=== PATIENT | female | born 1980 | race Caucasian/White ===

== ENCOUNTER 2023-02-06 23:55 | Emergency (ER) | payer MEDICAID, OTHER ==
[~2023-02-06] VITALS: Ht 175.3 cm; Wt 71.2 kg
[2023-02-07 00:20] VITALS: O2SAT 98
[2023-02-07] MEDS ORDERED: TETANUS, DIPHTHERIA, PERTUSSIS VAC/PF 0.5ML (>10YR OLD) IM ONE (01:30)
[2023-02-07] MEDS ORDERED: IBUPROFEN 600MG TABLET PO ONE (01:30)
[2023-02-07] MEDS ORDERED: LIDOCAINE HCL/PF 1% 10 MG/ML 5ML VIAL INFIL ONE (01:45)
[2023-02-07] MEDS ORDERED: BACITRACIN ZINC OINT UDPKT TOP ONE (01:45)
[2023-02-07 01:50] VITALS: BP 126/76
[2023-02-07] MEDS ORDERED: BO1 TP ×2 (02:45→03:16)
[2023-02-07] MEDS ORDERED: IBUP-2029 MT ×2 (02:45→03:16)
[2023-02-07 03:19] VITALS: PULSE 94; RESP 16; TEMP 97.8
== END 2023-02-07 03:24 | disposition home or self-care (01) ==
LOC: ER 23:55
DX: S52.591A Other fractures of lower end of right radius, initial encounter for closed fracture (principal); W19.XXXA Unspecified fall, initial encounter; Y93.89 Activity, other specified; Y92.89 Other specified places as the place of occurrence of the external cause; Y99.8 Other external cause status
CPT/HCPCS: 99284; 81025; 73110; 73130; 90715; 29125; 90471; Z7610